=== PATIENT | male | born 2005 | race Two or more races ===

== ENCOUNTER 2024-03-11 19:41 | Emergency (ER) | payer MEDICAID, OTHER ==
[~2024-03-11] VITALS: Ht 182.9 cm; Wt 128.0 kg
[2024-03-11 19:55] VITALS: BP 137/82; PULSE 79; RESP 20; O2SAT 97
[2024-03-11] MEDS ORDERED: IBUP-1455 PO (22:05)
== END 2024-03-11 22:56 | disposition home or self-care (01) ==
LOC: ER 19:41
DX: S39.011A Strain of muscle, fascia and tendon of abdomen, initial encounter (principal); X58.XXXA Exposure to other specified factors, initial encounter; Y93.89 Activity, other specified; Y92.89 Other specified places as the place of occurrence of the external cause; Y99.8 Other external cause status
CPT/HCPCS: 76870